=== PATIENT | female | born 1990 | race Caucasian/White ===

== ENCOUNTER → 2019-01-16 14:54 | Outpatient (CLI) | payer SELFPAY ==
--- NOTE | 2019-01-16 15:12 | XR_ITS ---
XR wrist RT min 3V HISTORY pain following injury ITS.REASON: wrist pain. DO SCAPHOID VIEW ORDERING PHYSICIAN: Rosemary Lopez MD PATIENT AGE: 28 years Comparison: 01/06/2019 FINDINGS: Standard images are performed along with navicular views No fracture or dislocation. No lytic or blastic change. There is normal mineralization.. The joint spaces are well-preserved. No significant degenerative/arthritic changes. No erosive changes evident.. IMPRESSION: Negative wrist , no evidence of navicular fracture
== END ==
PROVIDERS: Visit Provider Orthopaedic Surgery
DX: S63.501A Unspecified sprain of right wrist, initial encounter (principal)
CPT/HCPCS: 73110